=== PATIENT | male | born 1975 | race Caucasian/White ===

== ENCOUNTER 2017-10-03 08:24 | Inpatient (IN) | payer MEDICAID ==
[~2017-10-03] VITALS: Ht 188 cm; Wt 75.3 kg
[~2017-10-03 08:24] MED LIST: MUPI1OIN4 NS; OLAN7.5T2 PO
[2017-10-03 08:58] LABS: BASOPHILS % (AUTO) 1.4 % (0.0-2.0); EOSINOPHILS % (AUTO) 1.2 % (1.0-6.0); HEMATOCRIT 42.3 % (41-53); HEMOGLOBIN 14.5 g/dL (13.5-17.5); LYMPHOCYTES # (AUTO) 1.8 K/uL (1.0-4.8); LYMPHOCYTES % (AUTO) 31.1 % (22.0-44.0); MEAN CORPUSCULAR HEMOGLOBIN 33.5 pg (26.0-34.0); MEAN CORPUSCULAR HGB CONC 34.2 G/dL (31.0-37.0); MEAN CORPUSCULAR VOLUME 98 fL (80-100); MONOCYTES # (AUTO) 0.4 K/uL (0.1-1.0); MONOCYTES % (AUTO) 7.4 % (2.0-9.0); NEUTROPHILS # (AUTO) 3.5 K/uL (1.8-7.7); NEUTROPHILS % (AUTO) 58.9 % (40.0-70.0); PLATELET COUNT (AUTO) 174 K/uL (150-450); RED BLOOD CELL COUNT(AUTO) 4.33 MIL/uL (4.50-5.90); RED CELL DISTRIBUTION WIDTH 13.2 % (11.5-14.5)
[2017-10-03] MEDS: HALOPERIDOL 5 MG TABLET PO ONE ×2 (09:00→09:03)
[2017-10-03] MEDS ORDERED: LORazepam 2 MG TABLET PO ONE (09:00)
[2017-10-03 09:10] LABS: ANION GAP 8 mmol/L (8-16); CALCIUM, TOTAL 8.7 mg/dL (8.8-10.5); CARBON DIOXIDE 31 mmol/L (22-29); CHLORIDE 103 mmol/L (98-107); CREATININE 0.91 mg/dL (0.60-1.30); GLOMERULAR FILTR. RATE CALC > 60 mL/min (>60); GLUCOSE,RANDOM 72 mg/dL (70-110); POTASSIUM 4.4 mmol/L (3.5-5.1); SODIUM SERUM 142 mmol/L (136-145); UREA NITROGEN, BLOOD 15 mg/dL (7-18)
[2017-10-03 09:15] LABS: ALANINE AMINOTRANSFERASE 43 U/L (12-78); ALBUMIN 3.8 g/dL (3.4-5.0); ALKALINE PHOSPHATASE 58 U/L (46-116); ASPARTATE AMINOTRANSFERASE 69 U/L (15-37); BILIRUBIN,TOTAL 0.2 mg/dL (0.1-1.0); TOTAL PROTEIN, SERUM 7.2 g/dL (6.4-8.2)
[2017-10-03] MEDS ORDERED: HALOPERIDOL 5 MG TABLET PO PRN (09:30)
[2017-10-03 10:46] VITALS: BP 121/80
[2017-10-03] MEDS ORDERED: -PHARMACY VACCINE NOTE- MISC ONE (12:15)
[2017-10-03] MEDS: LORazepam 2 MG TABLET PO PRN (14:15)
[2017-10-03 16:27] VITALS: BP 119/66
[2017-10-03] MEDS: ZOLPIDEM TARTRATE 10 MG TABLET PO PRN (20:26)
[2017-10-03] MEDS: OLANZapine 7.5 MG TABLET PO SCH (20:26)
[2017-10-03] MEDS ORDERED: QUEtiapine FUMARATE 200 MG TABLET PO SCH (21:00)
[2017-10-04 06:29] VITALS: BP 107/65
[2017-10-04 08:04] VITALS: BP 100/62
[2017-10-04 08:39] LABS: CHOL/HDL RATIO 1.8 (4.2-7.3)
[2017-10-04] MEDS ORDERED: ACETAMINOPHEN 325 MG TABLET PO PRN (11:00)
[2017-10-04] MEDS ORDERED: ALBUTEROL SULFATE HFA 90 MCG/PUFF 8 GM INHALER IH PRN (11:00)
[2017-10-04] MEDS ORDERED: MAG HYDROX/AL HYDROX/SIMETH ES 30 ML SUSPENSION UDCUP PO PRN (11:00)
[2017-10-04] MEDS ORDERED: CloNIDine HCL 0.1 MG TABLET PO PRN (11:00)
[2017-10-04] MEDS ORDERED: BACITRACIN 28.4 GM OINTMENT TP PRN (11:00)
[2017-10-04] MEDS ORDERED: MAGNESIUM HYDROXIDE SUSPENSION 30 ML UDCUP PO PRN (11:00)
[2017-10-04] MEDS ORDERED: PETROLATUM,WHITE 71 GM JELLY TP PRN (11:00)
[2017-10-04] MEDS ORDERED: ONDANSETRON HCL 4 MG TABLET PO PRN (11:00)
[2017-10-04] MEDS ORDERED: BENZOCAINE/MENTHOL LOZENGE MM PRN (11:00)
[2017-10-04] MEDS ORDERED: IBUPROFEN 600 MG TABLET PO PRN (11:00)
[2017-10-04] MEDS ORDERED: LOPERAMIDE HCL 2 MG CAPSULE PO PRN (11:00)
[2017-10-04] MEDS: LORazepam 2 MG TABLET PO PRN ×2 (11:50→20:16)
[2017-10-04] MEDS: TraMADol HCL 50 MG TABLET PO PRN ×2 (11:50→20:16)
[2017-10-04 16:14] VITALS: BP 110/66
[2017-10-04] MEDS: OLANZapine 7.5 MG TABLET PO SCH (20:16)
[2017-10-05 06:25] VITALS: BP 104/65
[2017-10-05 08:16] VITALS: BP 100/66
[2017-10-05] MEDS: NICOTINE 21 MG/24 HOUR PATCH TD SCH (08:33)
[2017-10-05] MEDS: MULTIVITAMINS WITH MINERALS, THERAPEUTIC TABLET PO SCH (08:33)
[2017-10-05] MEDS: LORazepam 2 MG TABLET PO PRN ×3 (08:33→20:22)
[2017-10-05] MEDS: TraMADol HCL 50 MG TABLET PO PRN ×2 (11:43→19:15)
[2017-10-05 16:03] VITALS: BP 105/73
[2017-10-05] MEDS: OLANZapine 7.5 MG TABLET PO SCH (20:22)
[2017-10-05] MEDS: ZOLPIDEM TARTRATE 10 MG TABLET PO PRN (20:22)
[2017-10-06 06:17] VITALS: BP 101/72
[2017-10-06 08:06] VITALS: BP 110/71
[2017-10-06] MEDS: LORazepam 2 MG TABLET PO PRN ×3 (08:46→20:10)
[2017-10-06] MEDS: MULTIVITAMINS WITH MINERALS, THERAPEUTIC TABLET PO SCH (08:46)
[2017-10-06] MEDS: NICOTINE 21 MG/24 HOUR PATCH TD SCH (08:47)
[2017-10-06] MEDS: TraMADol HCL 50 MG TABLET PO PRN ×2 (10:21→20:11)
[2017-10-06 16:22] VITALS: BP 126/65
[2017-10-06] MEDS: ZOLPIDEM TARTRATE 10 MG TABLET PO PRN (20:10)
[2017-10-06] MEDS: OLANZapine 7.5 MG TABLET PO SCH (20:10)
[2017-10-07 06:31] VITALS: BP 119/72
[2017-10-07] MEDS: MULTIVITAMINS WITH MINERALS, THERAPEUTIC TABLET PO SCH (08:09)
[2017-10-07] MEDS: NICOTINE 21 MG/24 HOUR PATCH TD SCH (08:09)
[2017-10-07 08:13] VITALS: BP 111/65
[2017-10-07] MEDS: LORazepam 2 MG TABLET PO PRN ×3 (10:20→22:06)
[2017-10-07] MEDS: TraMADol HCL 50 MG TABLET PO PRN ×2 (10:21→16:37)
[2017-10-07 16:35] VITALS: BP 116/70
[2017-10-07] MEDS: ZOLPIDEM TARTRATE 10 MG TABLET PO PRN (20:18)
[2017-10-07] MEDS: OLANZapine 7.5 MG TABLET PO SCH (21:08)
[2017-10-08 06:45] VITALS: BP 125/78
[2017-10-08] MEDS: TraMADol HCL 50 MG TABLET PO PRN ×3 (07:08→13:12)
[2017-10-08] MEDS: LORazepam 2 MG TABLET PO PRN (07:08)
[2017-10-08] MEDS: NICOTINE 21 MG/24 HOUR PATCH TD SCH (08:10)
[2017-10-08] MEDS: MULTIVITAMINS WITH MINERALS, THERAPEUTIC TABLET PO SCH (08:10)
[2017-10-08 08:12] VITALS: BP 106/67
[2017-10-09] MEDS ORDERED: ZOLP10TA7 PO (12:19)
[2017-10-09] MEDS ORDERED: LORA2TAB2 PO (12:19)
[2017-10-09] MEDS ORDERED: TRAM50TA4 PO (12:19)
== END 2017-10-08 13:00 | disposition home or self-care (01) | DRG 750 ==
LOC: EMS 08:24 → B3A 09:43
PROVIDERS: ADMIT Psychiatry & Neurology Psychiatry; ATTEND Psychiatry & Neurology Psychiatry
DX: F20.0 Paranoid schizophrenia (principal); R45.851 Suicidal ideations; Z91.19 Patient's noncompliance with other medical treatment and regimen; G47.00 Insomnia, unspecified; M54.5 Low back pain; F17.200 Nicotine dependence, unspecified, uncomplicated; F15.90 Other stimulant use, unspecified, uncomplicated; F10.10 Alcohol abuse, uncomplicated; Z59.0 Homelessness; Z79.899 Other long term (current) drug therapy; Z71.6 Tobacco abuse counseling
CPT/HCPCS: 83036; 87081; 99285; G0480

== ENCOUNTER 2017-10-09 12:07 | Inpatient (IN) | payer MEDICAID ==
[~2017-10-09] VITALS: Ht 188 cm; Wt 80.7 kg
[~2017-10-09 12:07] MED LIST changes: -MUPI1OIN4 NS
[2017-10-09] MEDS ORDERED: ZOLP10TA7 PO (12:19)
[2017-10-09] MEDS ORDERED: LORA2TAB2 PO (12:19)
[2017-10-09] MEDS ORDERED: TRAM50TA4 PO (12:19)
[2017-10-09 16:11] LABS: BASOPHILS % (AUTO) 0.8 % (0.0-2.0); EOSINOPHILS % (AUTO) 0.2 % (1.0-6.0); HEMATOCRIT 41.7 % (41-53); HEMOGLOBIN 14.4 g/dL (13.5-17.5); LYMPHOCYTES # (AUTO) 1.6 K/uL (1.0-4.8); LYMPHOCYTES % (AUTO) 15.9 % (22.0-44.0); MEAN CORPUSCULAR HEMOGLOBIN 33.7 pg (26.0-34.0); MEAN CORPUSCULAR HGB CONC 34.6 G/dL (31.0-37.0); MEAN CORPUSCULAR VOLUME 98 fL (80-100); MONOCYTES # (AUTO) 1.1 K/uL (0.1-1.0); MONOCYTES % (AUTO) 11.4 % (2.0-9.0); NEUTROPHILS # (AUTO) 7.2 K/uL (1.8-7.7); NEUTROPHILS % (AUTO) 71.7 % (40.0-70.0); PLATELET COUNT (AUTO) 187 K/uL (150-450); RED BLOOD CELL COUNT(AUTO) 4.27 MIL/uL (4.50-5.90); RED CELL DISTRIBUTION WIDTH 13.5 % (11.5-14.5)
[2017-10-09 16:20] LABS: ANION GAP 6 mmol/L (8-16); CALCIUM, TOTAL 9.7 mg/dL (8.8-10.5); CARBON DIOXIDE 30 mmol/L (22-29); CHLORIDE 102 mmol/L (98-107); CREATININE 0.92 mg/dL (0.60-1.30); GLOMERULAR FILTR. RATE CALC > 60 mL/min (>60); GLUCOSE,RANDOM 118 mg/dL (70-110); POTASSIUM 4.4 mmol/L (3.5-5.1); SODIUM SERUM 138 mmol/L (136-145); UREA NITROGEN, BLOOD 18 mg/dL (7-18)
[2017-10-09 16:28] LABS: ALANINE AMINOTRANSFERASE 40 U/L (12-78); ALKALINE PHOSPHATASE 79 U/L (46-116); ASPARTATE AMINOTRANSFERASE 42 U/L (15-37); BILIRUBIN,TOTAL 0.4 mg/dL (0.1-1.0); TOTAL PROTEIN, SERUM 7.8 g/dL (6.4-8.2)
[2017-10-09] MEDS ORDERED: HALOPERIDOL 5 MG TABLET PO PRN (19:00)
[2017-10-09 19:14] LABS: AMPHET/METH SCREEN,URINE POSITIVE (NEGATIVE); BARBITURATE SCREEN, URINE NEGATIVE (NEGATIVE); BENZODIAZEPINES SCREEN,URINE NEGATIVE (NEGATIVE); CANNABINOID SCREEN,URINE POSITIVE (NEGATIVE); COCAINE SCREEN,URINE NEGATIVE (NEGATIVE); METHADONE SCREEN, URINE NEGATIVE (NEGATIVE); OPIATE SCREEN,URINE NEGATIVE (NEGATIVE); PHENCYCLIDINE SCREEN,URINE NEGATIVE (NEGATIVE)
[2017-10-09] MEDS: LORazepam 2 MG TABLET PO PRN (19:32)
[2017-10-09] MEDS ORDERED: PETROLATUM,WHITE 71 GM JELLY TP PRN (21:00)
[2017-10-09] MEDS ORDERED: MAG HYDROX/AL HYDROX/SIMETH ES 30 ML SUSPENSION UDCUP PO PRN (21:00)
[2017-10-09] MEDS ORDERED: CloNIDine HCL 0.1 MG TABLET PO PRN (21:00)
[2017-10-09] MEDS ORDERED: ACETAMINOPHEN 325 MG TABLET PO PRN (21:00)
[2017-10-09] MEDS ORDERED: BACITRACIN 28.4 GM OINTMENT TP PRN (21:00)
[2017-10-09] MEDS ORDERED: MAGNESIUM HYDROXIDE SUSPENSION 30 ML UDCUP PO PRN (21:00)
[2017-10-09] MEDS ORDERED: ALBUTEROL SULFATE HFA 90 MCG/PUFF 8 GM INHALER IH PRN (21:00)
[2017-10-09] MEDS ORDERED: ONDANSETRON HCL 4 MG TABLET PO PRN (21:00)
[2017-10-09] MEDS ORDERED: BENZOCAINE/MENTHOL LOZENGE MM PRN (21:15)
[2017-10-09 21:22] VITALS: BP 149/94
[2017-10-09] MEDS: OLANZapine 7.5 MG TABLET PO SCH (22:14)
[2017-10-09] MEDS: ZOLPIDEM TARTRATE 10 MG TABLET PO PRN (22:17)
[2017-10-10 05:30] VITALS: BP 116/66
[2017-10-10] MEDS: LORazepam 2 MG TABLET PO PRN ×3 (05:39→18:35)
[2017-10-10 10:00] VITALS: BP 103/52
[2017-10-10] MEDS: DOCUSATE SODIUM 100 MG CAPSULE PO SCH (11:10)
[2017-10-10] MEDS: OMEPRAZOLE 20 MG CAPSULE PO SCH (11:10)
[2017-10-10] MEDS: NICOTINE 21 MG/24 HOUR PATCH TD SCH (11:15)
[2017-10-10] MEDS: IBUPROFEN 600 MG TABLET PO PRN (11:23)
[2017-10-10] MEDS: TraMADol HCL 50 MG TABLET PO PRN ×2 (13:11→21:28)
[2017-10-10] MEDS: ZOLPIDEM TARTRATE 10 MG TABLET PO PRN (20:32)
[2017-10-10] MEDS: OLANZapine 7.5 MG TABLET PO SCH (20:32)
[2017-10-10 21:27] VITALS: BP 124/78
[2017-10-10 22:27] VITALS: BP 118/70
[2017-10-11] MEDS: DOCUSATE SODIUM 100 MG CAPSULE PO SCH (08:42)
[2017-10-11] MEDS: NICOTINE 21 MG/24 HOUR PATCH TD SCH (08:42)
[2017-10-11] MEDS: OMEPRAZOLE 20 MG CAPSULE PO SCH (08:42)
[2017-10-11] MEDS: LORazepam 2 MG TABLET PO PRN ×3 (08:43→20:23)
[2017-10-11] MEDS: TraMADol HCL 50 MG TABLET PO PRN ×2 (08:43→17:06)
[2017-10-11 09:29] VITALS: BP 98/68
[2017-10-11 17:05] VITALS: BP 110/69
[2017-10-11 18:05] VITALS: BP 112/69
[2017-10-11] MEDS: ZOLPIDEM TARTRATE 10 MG TABLET PO PRN (20:23)
[2017-10-11] MEDS: OLANZapine 7.5 MG TABLET PO SCH (20:23)
[2017-10-12] MEDS: LORazepam 2 MG TABLET PO PRN ×3 (01:10→15:49)
[2017-10-12 01:25] VITALS: BP 117/74
[2017-10-12] MEDS: OMEPRAZOLE 20 MG CAPSULE PO SCH (08:38)
[2017-10-12] MEDS: DOCUSATE SODIUM 100 MG CAPSULE PO SCH (08:38)
[2017-10-12] MEDS: NICOTINE 21 MG/24 HOUR PATCH TD SCH (08:40)
[2017-10-12 08:55] VITALS: BP 121/68
[2017-10-12] MEDS: TraMADol HCL 50 MG TABLET PO PRN ×2 (09:46→18:02)
[2017-10-12] MEDS: LOPERAMIDE HCL 2 MG CAPSULE PO PRN (16:23)
[2017-10-12 17:56] VITALS: BP 132/65
[2017-10-12] MEDS: OLANZapine 7.5 MG TABLET PO SCH (20:42)
[2017-10-12] MEDS: MIRTAZAPINE 15 MG TABLET PO SCH (20:42)
[2017-10-13] MEDS: LORazepam 2 MG TABLET PO PRN ×3 (08:02→19:35)
[2017-10-13] MEDS: TraMADol HCL 50 MG TABLET PO PRN ×2 (08:02→16:34)
[2017-10-13] MEDS: LOPERAMIDE HCL 2 MG CAPSULE PO PRN ×3 (08:03→16:35)
[2017-10-13] MEDS: OMEPRAZOLE 20 MG CAPSULE PO SCH (08:03)
[2017-10-13] MEDS: DOCUSATE SODIUM 100 MG CAPSULE PO SCH (08:04)
[2017-10-13] MEDS: NICOTINE 21 MG/24 HOUR PATCH TD SCH (08:04)
[2017-10-13 09:40] VITALS: BP 106/68
[2017-10-13 16:25] VITALS: BP 115/71
[2017-10-13] MEDS: OLANZapine 7.5 MG TABLET PO SCH (20:07)
[2017-10-13] MEDS: MIRTAZAPINE 15 MG TABLET PO SCH (20:07)
[2017-10-13 21:18] VITALS: BP 110/70
[2017-10-14] MEDS: DOCUSATE SODIUM 100 MG CAPSULE PO SCH (08:03)
[2017-10-14] MEDS: OMEPRAZOLE 20 MG CAPSULE PO SCH (08:03)
[2017-10-14] MEDS: LORazepam 2 MG TABLET PO PRN ×4 (08:04→21:25)
[2017-10-14] MEDS: TraMADol HCL 50 MG TABLET PO PRN ×2 (08:04→16:14)
[2017-10-14 08:05] VITALS: BP 113/73
[2017-10-14] MEDS: NICOTINE 21 MG/24 HOUR PATCH TD SCH (08:38)
[2017-10-14 10:18] VITALS: BP 113/73
[2017-10-14 16:12] VITALS: BP 136/87
[2017-10-14 17:12] VITALS: BP 126/80
[2017-10-14] MEDS: MIRTAZAPINE 15 MG TABLET PO SCH (20:12)
[2017-10-14] MEDS: OLANZapine 7.5 MG TABLET PO SCH (20:13)
[2017-10-14] MEDS: ZOLPIDEM TARTRATE 10 MG TABLET PO PRN (21:25)
[2017-10-15] MEDS: NICOTINE 21 MG/24 HOUR PATCH TD SCH (08:59)
[2017-10-15] MEDS: OMEPRAZOLE 20 MG CAPSULE PO SCH (08:59)
[2017-10-15] MEDS: DOCUSATE SODIUM 100 MG CAPSULE PO SCH (08:59)
[2017-10-15 09:01] VITALS: BP 107/60
[2017-10-15] MEDS: LORazepam 2 MG TABLET PO PRN ×3 (09:01→20:35)
[2017-10-15] MEDS: TraMADol HCL 50 MG TABLET PO PRN ×2 (09:01→18:01)
[2017-10-15 10:01] VITALS: BP 114/66
[2017-10-15 17:58] VITALS: BP 127/76
[2017-10-15 18:58] VITALS: BP 116/71
[2017-10-15] MEDS: OLANZapine 7.5 MG TABLET PO SCH (20:13)
[2017-10-15] MEDS: MIRTAZAPINE 15 MG TABLET PO SCH (20:15)
[2017-10-15] MEDS: ZOLPIDEM TARTRATE 10 MG TABLET PO PRN (20:35)
[2017-10-16 06:50] VITALS: BP 115/65
[2017-10-16] MEDS: TraMADol HCL 50 MG TABLET PO PRN ×2 (06:54→16:04)
[2017-10-16] MEDS: LORazepam 2 MG TABLET PO PRN ×4 (06:54→21:15)
[2017-10-16] MEDS: NICOTINE 21 MG/24 HOUR PATCH TD SCH (09:00)
[2017-10-16 09:41] VITALS: BP 127/86
[2017-10-16] MEDS: DOCUSATE SODIUM 100 MG CAPSULE PO SCH (10:39)
[2017-10-16] MEDS: OMEPRAZOLE 20 MG CAPSULE PO SCH (10:39)
[2017-10-16 16:03] VITALS: BP 120/66
[2017-10-16 18:54] VITALS: BP 130/78
[2017-10-16] MEDS: MIRTAZAPINE 15 MG TABLET PO SCH (20:12)
[2017-10-16] MEDS: OLANZapine 7.5 MG TABLET PO SCH (20:12)
[2017-10-16] MEDS: ZOLPIDEM TARTRATE 10 MG TABLET PO PRN (21:15)
[2017-10-17 07:25] VITALS: BP 107/80
[2017-10-17] MEDS: TraMADol HCL 50 MG TABLET PO PRN ×2 (07:29→19:08)
[2017-10-17] MEDS: LORazepam 2 MG TABLET PO PRN ×3 (08:17→17:42)
[2017-10-17] MEDS: OMEPRAZOLE 20 MG CAPSULE PO SCH (08:17)
[2017-10-17] MEDS: DOCUSATE SODIUM 100 MG CAPSULE PO SCH (08:17)
[2017-10-17] MEDS: NICOTINE 21 MG/24 HOUR PATCH TD SCH (09:00)
[2017-10-17 10:29] VITALS: BP 107/80
[2017-10-17] MEDS ORDERED: BENZOCAINE 10% 7 GM GEL TP PRN (17:45)
[2017-10-17 19:05] VITALS: BP 121/65
[2017-10-17] MEDS: MIRTAZAPINE 15 MG TABLET PO SCH (20:51)
[2017-10-17] MEDS: OLANZapine 7.5 MG TABLET PO SCH (20:51)
[2017-10-18] MEDS: LORazepam 2 MG TABLET PO PRN ×4 (05:29→19:10)
[2017-10-18 05:30] VITALS: BP 123/72
[2017-10-18] MEDS: TraMADol HCL 50 MG TABLET PO PRN ×2 (05:30→13:48)
[2017-10-18 08:00] VITALS: BP 102/70
[2017-10-18] MEDS: NICOTINE 21 MG/24 HOUR PATCH TD SCH (09:00)
[2017-10-18] MEDS: DOCUSATE SODIUM 100 MG CAPSULE PO SCH (09:12)
[2017-10-18] MEDS: MAGNESIUM SULFATE 454 GM BOX PO SCH ×3 (09:12→16:18)
[2017-10-18] MEDS: OMEPRAZOLE 20 MG CAPSULE PO SCH (09:12)
[2017-10-18 18:51] VITALS: BP 126/73
[2017-10-18] MEDS: OLANZapine 7.5 MG TABLET PO SCH (20:17)
[2017-10-18] MEDS: MIRTAZAPINE 15 MG TABLET PO SCH (20:17)
[2017-10-18] MEDS: ZOLPIDEM TARTRATE 10 MG TABLET PO PRN (20:42)
[2017-10-19 06:05] VITALS: BP 102/86
[2017-10-19] MEDS: TraMADol HCL 50 MG TABLET PO PRN ×2 (06:13→14:59)
[2017-10-19] MEDS: LORazepam 2 MG TABLET PO PRN ×4 (06:16→20:57)
[2017-10-19] MEDS: OMEPRAZOLE 20 MG CAPSULE PO SCH (09:51)
[2017-10-19] MEDS: DOCUSATE SODIUM 100 MG CAPSULE PO SCH (09:51)
[2017-10-19] MEDS: NICOTINE 21 MG/24 HOUR PATCH TD SCH (09:53)
[2017-10-19] MEDS: MAGNESIUM SULFATE 454 GM BOX PO SCH ×3 (10:17→17:17)
[2017-10-19 10:31] VITALS: BP 137/84
[2017-10-19] MEDS: IBUPROFEN 600 MG TABLET PO PRN (10:31)
[2017-10-19 15:59] VITALS: BP 127/77
[2017-10-19 17:16] VITALS: BP 113/80
[2017-10-19] MEDS: OLANZapine 7.5 MG TABLET PO SCH (20:03)
[2017-10-19] MEDS: ZOLPIDEM TARTRATE 10 MG TABLET PO PRN (20:57)
[2017-10-19] MEDS: MIRTAZAPINE 15 MG TABLET PO SCH (21:00)
[2017-10-20] MEDS: LORazepam 2 MG TABLET PO PRN ×4 (07:07→20:12)
[2017-10-20] MEDS: TraMADol HCL 50 MG TABLET PO PRN ×2 (07:07→15:06)
[2017-10-20 07:08] VITALS: BP 122/73
[2017-10-20 08:07] VITALS: BP 105/62
[2017-10-20] MEDS: NICOTINE 21 MG/24 HOUR PATCH TD SCH (09:00)
[2017-10-20] MEDS: OMEPRAZOLE 20 MG CAPSULE PO SCH (09:06)
[2017-10-20] MEDS: DOCUSATE SODIUM 100 MG CAPSULE PO SCH (09:06)
[2017-10-20] MEDS: MAGNESIUM SULFATE 454 GM BOX PO SCH ×3 (09:09→17:16)
[2017-10-20 16:00] VITALS: BP 128/74
[2017-10-20] MEDS: ZOLPIDEM TARTRATE 10 MG TABLET PO PRN (20:12)
[2017-10-20] MEDS: OLANZapine 7.5 MG TABLET PO SCH (20:14)
[2017-10-20] MEDS: MIRTAZAPINE 15 MG TABLET PO SCH (21:00)
[2017-10-21 05:55] VITALS: BP 116/76
[2017-10-21] MEDS: TraMADol HCL 50 MG TABLET PO PRN ×2 (05:58→14:10)
[2017-10-21] MEDS: LORazepam 2 MG TABLET PO PRN ×4 (05:58→21:02)
[2017-10-21 08:00] VITALS: BP 137/54
[2017-10-21] MEDS: OMEPRAZOLE 20 MG CAPSULE PO SCH (09:06)
[2017-10-21] MEDS: NICOTINE 21 MG/24 HOUR PATCH TD SCH (09:06)
[2017-10-21] MEDS: DOCUSATE SODIUM 100 MG CAPSULE PO SCH (09:06)
[2017-10-21] MEDS: MAGNESIUM SULFATE 454 GM BOX PO SCH ×3 (09:06→17:00)
[2017-10-21 14:10] VITALS: BP 124/84
[2017-10-21 20:08] VITALS: BP 130/78
[2017-10-21] MEDS: MIRTAZAPINE 15 MG TABLET PO SCH (21:00)
[2017-10-21] MEDS: ZOLPIDEM TARTRATE 10 MG TABLET PO PRN (21:02)
[2017-10-21] MEDS: OLANZapine 7.5 MG TABLET PO SCH (21:02)
[2017-10-22 06:25] VITALS: BP 119/88
[2017-10-22] MEDS: LORazepam 2 MG TABLET PO PRN ×4 (06:30→20:05)
[2017-10-22] MEDS: TraMADol HCL 50 MG TABLET PO PRN ×2 (06:30→21:33)
[2017-10-22] MEDS: MAGNESIUM SULFATE 454 GM BOX PO SCH ×3 (09:00→16:06)
[2017-10-22] MEDS: NICOTINE 21 MG/24 HOUR PATCH TD SCH (09:00)
[2017-10-22] MEDS: OMEPRAZOLE 20 MG CAPSULE PO SCH (09:21)
[2017-10-22] MEDS: DOCUSATE SODIUM 100 MG CAPSULE PO SCH (09:21)
[2017-10-22 10:03] VITALS: BP 107/67
[2017-10-22 14:39] VITALS: BP 138/93
[2017-10-22 17:02] VITALS: BP 117/66
[2017-10-22] MEDS: MIRTAZAPINE 15 MG TABLET PO SCH (20:04)
[2017-10-22] MEDS: OLANZapine 7.5 MG TABLET PO SCH (20:04)
[2017-10-22 21:34] VITALS: BP 122/69
[2017-10-22] MEDS: ZOLPIDEM TARTRATE 10 MG TABLET PO PRN (22:12)
[2017-10-23] MEDS: TraMADol HCL 50 MG TABLET PO PRN (06:21)
[2017-10-23 06:22] VITALS: BP 120/80
[2017-10-23] MEDS: DOCUSATE SODIUM 100 MG CAPSULE PO SCH (08:50)
[2017-10-23] MEDS: OMEPRAZOLE 20 MG CAPSULE PO SCH (08:50)
[2017-10-23 09:00] VITALS: BP 135/74
[2017-10-23] MEDS: NICOTINE 21 MG/24 HOUR PATCH TD SCH (09:00)
[2017-10-23] MEDS: MAGNESIUM SULFATE 454 GM BOX PO SCH ×2 (09:27→12:44)
[2017-10-23] MEDS ORDERED: MIRT15 PO (10:46)
[2017-10-23] MEDS ORDERED: DSS100 PO (10:49)
[2017-10-23] MEDS ORDERED: OMEP20 PO (10:50)
[2017-10-23] MEDS ORDERED: EPSOT PO (10:50)
[2017-10-23] MEDS: LORazepam 2 MG TABLET PO PRN (11:57)
== END 2017-10-23 14:44 | disposition home or self-care (01) | DRG 750 ==
LOC: EMS 12:09 → 3EI 20:00
PROVIDERS: ADMIT Psychiatry & Neurology Psychiatry; ATTEND Psychiatry & Neurology Psychiatry
DX: F20.0 Paranoid schizophrenia (principal); R45.851 Suicidal ideations; Z91.19 Patient's noncompliance with other medical treatment and regimen; G47.00 Insomnia, unspecified; K08.89 Other specified disorders of teeth and supporting structures; M54.5 Low back pain; F17.210 Nicotine dependence, cigarettes, uncomplicated; F15.90 Other stimulant use, unspecified, uncomplicated; Z59.0 Homelessness; Z79.899 Other long term (current) drug therapy; Z71.6 Tobacco abuse counseling; Z71.41 Alcohol abuse counseling and surveillance of alcoholic
CPT/HCPCS: 87081; 99285; G0480

== ENCOUNTER 2017-10-29 18:25 | Inpatient (IN) | payer MEDICAID ==
[~2017-10-29] VITALS: Ht 188 cm; Wt 83.5 kg
[~2017-10-29 18:25] MED LIST changes: +DSS100 PO; +EPSOT PO; +MIRT15 PO; +OMEP20 PO
[2017-10-29] MEDS ORDERED: LORA2TAB2 PO (19:05)
[2017-10-29] MEDS ORDERED: OLAN7.5T2 PO (19:05)
[2017-10-29] MEDS ORDERED: TEMA15CA PO (19:05)
[2017-10-29 20:16] LABS: BASOPHILS % (AUTO) 1.4 % (0.0-2.0); EOSINOPHILS % (AUTO) 5.3 % (1.0-6.0); HEMATOCRIT 42.3 % (41-53); HEMOGLOBIN 14.6 g/dL (13.5-17.5); LYMPHOCYTES # (AUTO) 2.6 K/uL (1.0-4.8); LYMPHOCYTES % (AUTO) 39.1 % (22.0-44.0); MEAN CORPUSCULAR HEMOGLOBIN 33.3 pg (26.0-34.0); MEAN CORPUSCULAR HGB CONC 34.6 G/dL (31.0-37.0); MEAN CORPUSCULAR VOLUME 96 fL (80-100); MONOCYTES # (AUTO) 0.7 K/uL (0.1-1.0); MONOCYTES % (AUTO) 10.2 % (2.0-9.0); NEUTROPHILS # (AUTO) 2.9 K/uL (1.8-7.7); PLATELET COUNT (AUTO) 224 K/uL (150-450); RED BLOOD CELL COUNT(AUTO) 4.39 MIL/uL (4.50-5.90); RED CELL DISTRIBUTION WIDTH 13.5 % (11.5-14.5)
[2017-10-29 21:14] LABS: ALANINE AMINOTRANSFERASE 27 U/L (12-78); ALKALINE PHOSPHATASE 70 U/L (46-116); ANION GAP 8 mmol/L (8-16); ASPARTATE AMINOTRANSFERASE 14 U/L (15-37); BILIRUBIN,TOTAL 0.2 mg/dL (0.1-1.0); CALCIUM, TOTAL 8.8 mg/dL (8.8-10.5); CARBON DIOXIDE 29 mmol/L (22-29); CHLORIDE 105 mmol/L (98-107); CREATININE 0.91 mg/dL (0.60-1.30); GLOMERULAR FILTR. RATE CALC > 60 mL/min (>60); GLUCOSE,RANDOM 94 mg/dL (70-110); POTASSIUM 4.7 mmol/L (3.5-5.1); SODIUM SERUM 142 mmol/L (136-145); TOTAL PROTEIN, SERUM 7.5 g/dL (6.4-8.2); UREA NITROGEN, BLOOD 13 mg/dL (7-18)
[2017-10-29 21:58] LABS: AMPHET/METH SCREEN,URINE NEGATIVE (NEGATIVE); BARBITURATE SCREEN, URINE NEGATIVE (NEGATIVE); BENZODIAZEPINES SCREEN,URINE NEGATIVE (NEGATIVE); CANNABINOID SCREEN,URINE NEGATIVE (NEGATIVE); COCAINE SCREEN,URINE NEGATIVE (NEGATIVE); METHADONE SCREEN, URINE NEGATIVE (NEGATIVE); OPIATE SCREEN,URINE NEGATIVE (NEGATIVE); PHENCYCLIDINE SCREEN,URINE NEGATIVE (NEGATIVE)
[2017-10-29] MEDS ORDERED: DiphenhydrAMINE HCL 25 MG CAPSULE PO ONE (22:30)
[2017-10-29] MEDS ORDERED: ZOLPIDEM TARTRATE 10 MG TABLET PO PRN (22:30)
[2017-10-29] MEDS ORDERED: LORazepam 2 MG TABLET PO ONE (22:30)
[2017-10-29] MEDS ORDERED: HALOPERIDOL 5 MG TABLET PO ONE (22:30)
[2017-10-29] MEDS ORDERED: HALOPERIDOL 5 MG TABLET PO PRN (22:30)
[2017-10-30 01:17] VITALS: BP 134/69
[2017-10-30] MEDS ORDERED: LOPERAMIDE HCL 2 MG CAPSULE PO PRN (10:15)
[2017-10-30] MEDS ORDERED: IBUPROFEN 600 MG TABLET PO PRN (10:15)
[2017-10-30] MEDS ORDERED: ONDANSETRON HCL 4 MG TABLET PO PRN (10:15)
[2017-10-30] MEDS ORDERED: BACITRACIN 28.4 GM OINTMENT TP PRN (10:15)
[2017-10-30] MEDS ORDERED: ACETAMINOPHEN 325 MG TABLET PO PRN (10:15)
[2017-10-30] MEDS ORDERED: BENZOCAINE/MENTHOL LOZENGE MM PRN (10:15)
[2017-10-30] MEDS ORDERED: MAG HYDROX/AL HYDROX/SIMETH ES 30 ML SUSPENSION UDCUP PO PRN (10:15)
[2017-10-30] MEDS ORDERED: CloNIDine HCL 0.1 MG TABLET PO PRN (10:15)
[2017-10-30] MEDS ORDERED: PETROLATUM,WHITE 71 GM JELLY TP PRN (10:15)
[2017-10-30] MEDS ORDERED: ALBUTEROL SULFATE HFA 90 MCG/PUFF 8 GM INHALER IH PRN (10:15)
[2017-10-30] MEDS ORDERED: MAGNESIUM HYDROXIDE SUSPENSION 30 ML UDCUP PO PRN (10:15)
[2017-10-30 10:21] VITALS: BP 127/88
[2017-10-30] MEDS: LORazepam 2 MG TABLET PO PRN ×2 (14:09→19:33)
[2017-10-30 17:28] VITALS: BP 124/78
[2017-10-30] MEDS: OLANZapine 7.5 MG TABLET PO SCH (20:36)
[2017-10-30] MEDS: MIRTAZAPINE 15 MG TABLET PO SCH (20:41)
[2017-10-31] MEDS: LORazepam 2 MG TABLET PO PRN ×3 (06:42→16:51)
[2017-10-31 09:47] VITALS: BP 110/66
[2017-10-31 18:45] VITALS: BP 111/56
[2017-10-31] MEDS: OLANZapine 7.5 MG TABLET PO SCH (20:10)
[2017-10-31] MEDS: MIRTAZAPINE 15 MG TABLET PO SCH (20:10)
[2017-11-01] MEDS: LORazepam 2 MG TABLET PO PRN ×4 (05:35→19:23)
[2017-11-01 08:31] VITALS: BP 117/78
[2017-11-01] MEDS ORDERED: SERTRALINE HCL 50 MG TABLET PO SCH (09:00)
[2017-11-01 17:18] VITALS: BP 126/75
[2017-11-01] MEDS: OLANZapine 7.5 MG TABLET PO SCH (20:04)
[2017-11-02] MEDS: LORazepam 2 MG TABLET PO PRN ×4 (06:29→20:11)
[2017-11-02] MEDS: SERTRALINE HCL 100 MG TABLET PO SCH (08:27)
[2017-11-02 09:35] VITALS: BP 134/83
[2017-11-02] MEDS: TraMADol HCL 50 MG TABLET PO PRN (09:35)
[2017-11-02 09:52] VITALS: BP 134/83
[2017-11-02 19:31] VITALS: BP 119/77
[2017-11-02] MEDS: OLANZapine 7.5 MG TABLET PO SCH (20:11)
[2017-11-03 06:10] VITALS: BP 124/85
[2017-11-03] MEDS: TraMADol HCL 50 MG TABLET PO PRN ×2 (06:15→14:49)
[2017-11-03] MEDS: LORazepam 2 MG TABLET PO PRN ×4 (06:32→21:06)
[2017-11-03] MEDS: SERTRALINE HCL 100 MG TABLET PO SCH (09:04)
[2017-11-03 09:25] VITALS: BP 115/72
[2017-11-03 15:48] VITALS: BP 118/78
[2017-11-03] MEDS: OLANZapine 7.5 MG TABLET PO SCH (20:06)
[2017-11-03 21:35] VITALS: BP 108/72
[2017-11-04 05:45] VITALS: BP 116/73
[2017-11-04] MEDS: TraMADol HCL 50 MG TABLET PO PRN (05:57)
[2017-11-04] MEDS: LORazepam 2 MG TABLET PO PRN ×2 (05:57→10:47)
[2017-11-04] MEDS: SERTRALINE HCL 100 MG TABLET PO SCH (08:15)
[2017-11-04 09:40] VITALS: BP 129/77
[2017-11-04] MEDS ORDERED: SERT100T12 PO (12:30)
== END 2017-11-04 14:14 | disposition home or self-care (01) | DRG 750 ==
LOC: EMS 18:30 → 3EI 22:46
PROVIDERS: ADMIT Psychiatry & Neurology Psychiatry; ATTEND Psychiatry & Neurology Psychiatry
DX: F20.0 Paranoid schizophrenia (principal); R45.851 Suicidal ideations; Z59.0 Homelessness; M54.5 Low back pain; R45.4 Irritability and anger; R45.87 Impulsiveness; F41.9 Anxiety disorder, unspecified; G47.00 Insomnia, unspecified; F10.10 Alcohol abuse, uncomplicated; F12.90 Cannabis use, unspecified, uncomplicated; F15.90 Other stimulant use, unspecified, uncomplicated; F17.210 Nicotine dependence, cigarettes, uncomplicated; Z76.5 Malingerer [conscious simulation]; Z79.899 Other long term (current) drug therapy; Z71.41 Alcohol abuse counseling and surveillance of alcoholic
CPT/HCPCS: 87081; 99285; G0480

== ENCOUNTER 2018-02-28 11:38 | Inpatient (IN) | payer MEDICAID ==
[~2018-02-28] VITALS: Ht 188 cm; Wt 85.7 kg
[~2018-02-28 11:38] MED LIST changes: -DSS100 PO; -EPSOT PO; -MIRT15 PO; -OMEP20 PO; +SERT100T12 PO
[2018-02-28] MEDS ORDERED: TRAM50TA4 PO (11:58)
[2018-02-28 13:05] LABS: AMPHET/METH SCREEN,URINE NEGATIVE (NEGATIVE); BARBITURATE SCREEN, URINE NEGATIVE (NEGATIVE); BENZODIAZEPINES SCREEN,URINE NEGATIVE (NEGATIVE); CANNABINOID SCREEN,URINE POSITIVE (NEGATIVE); COCAINE SCREEN,URINE NEGATIVE (NEGATIVE); METHADONE SCREEN, URINE NEGATIVE (NEGATIVE); OPIATE SCREEN,URINE NEGATIVE (NEGATIVE)
[2018-02-28 13:07] LABS: PHENCYCLIDINE SCREEN,URINE NEGATIVE (NEGATIVE)
[2018-02-28 13:40] LABS: BASOPHILS % (AUTO) 0.9 % (0.0-2.0); HEMATOCRIT 41.1 % (41-53); LYMPHOCYTES # (AUTO) 1.9 K/uL (1.0-4.8); LYMPHOCYTES % (AUTO) 27.4 % (22.0-44.0); MEAN CORPUSCULAR HEMOGLOBIN 32.6 pg (26.0-34.0); MEAN CORPUSCULAR HGB CONC 34.1 G/dL (31.0-37.0); MEAN CORPUSCULAR VOLUME 96 fL (80-100); MONOCYTES # (AUTO) 0.5 K/uL (0.1-1.0); MONOCYTES % (AUTO) 7.6 % (2.0-9.0); NEUTROPHILS # (AUTO) 3.9 K/uL (1.8-7.7); NEUTROPHILS % (AUTO) 57.1 % (40.0-70.0); PLATELET COUNT (AUTO) 185 K/uL (150-450); RED BLOOD CELL COUNT(AUTO) 4.29 MIL/uL (4.50-5.90); RED CELL DISTRIBUTION WIDTH 14.2 % (11.5-14.5)
[2018-02-28 13:51] LABS: ANION GAP 5 mmol/L (8-16); CALCIUM, TOTAL 8.6 mg/dL (8.8-10.5); CARBON DIOXIDE 32 mmol/L (22-29); CHLORIDE 103 mmol/L (98-107); CREATININE 0.87 mg/dL (0.60-1.30); GLOMERULAR FILTR. RATE CALC > 60 mL/min (>60); GLUCOSE,RANDOM 84 mg/dL (70-110); POTASSIUM 4.1 mmol/L (3.5-5.1); SODIUM SERUM 140 mmol/L (136-145); UREA NITROGEN, BLOOD 18 mg/dL (7-18)
[2018-02-28 13:57] LABS: ALANINE AMINOTRANSFERASE 11 U/L (12-78); ALBUMIN 3.1 g/dL (3.4-5.0); ALKALINE PHOSPHATASE 68 U/L (46-116); ASPARTATE AMINOTRANSFERASE 14 U/L (15-37); BILIRUBIN,TOTAL 0.2 mg/dL (0.1-1.0); TOTAL PROTEIN, SERUM 6.5 g/dL (6.4-8.2)
[2018-02-28] MEDS ORDERED: HALOPERIDOL 5 MG TABLET PO PRN (14:30)
[2018-02-28] MEDS ORDERED: ZOLPIDEM TARTRATE 10 MG TABLET PO PRN (14:30)
[2018-02-28 17:19] VITALS: BP 115/79
[2018-02-28] MEDS: LORazepam 2 MG TABLET PO PRN (18:12)
[2018-03-01 06:59] VITALS: BP 118/85
[2018-03-01] MEDS: LORazepam 2 MG TABLET PO PRN ×3 (07:06→17:48)
[2018-03-01 08:16] VITALS: BP 102/59
[2018-03-01] MEDS ORDERED: PETROLATUM,WHITE 71 GM JELLY TP PRN (08:45)
[2018-03-01] MEDS ORDERED: BENZOCAINE/MENTHOL LOZENGE MM PRN (08:45)
[2018-03-01] MEDS ORDERED: ONDANSETRON HCL 4 MG TABLET PO PRN (08:45)
[2018-03-01] MEDS ORDERED: IBUPROFEN 600 MG TABLET PO PRN (08:45)
[2018-03-01] MEDS ORDERED: LOPERAMIDE HCL 2 MG CAPSULE PO PRN (08:45)
[2018-03-01] MEDS ORDERED: ALBUTEROL SULFATE HFA 90 MCG/PUFF 8 GM INHALER IH PRN (08:45)
[2018-03-01] MEDS ORDERED: ACETAMINOPHEN 325 MG TABLET PO PRN (08:45)
[2018-03-01] MEDS ORDERED: BACITRACIN 28.4 GM OINTMENT TP PRN (08:45)
[2018-03-01] MEDS ORDERED: MAG HYDROX/AL HYDROX/SIMETH ES 30 ML SUSPENSION UDCUP PO PRN (08:45)
[2018-03-01] MEDS ORDERED: CloNIDine HCL 0.1 MG TABLET PO PRN (08:45)
[2018-03-01] MEDS ORDERED: MAGNESIUM HYDROXIDE SUSPENSION 30 ML UDCUP PO PRN (08:45)
[2018-03-01 09:13] VITALS: BP 116/72
[2018-03-01] MEDS: TraMADol HCL 50 MG TABLET PO PRN ×2 (09:16→17:31)
[2018-03-01 16:07] VITALS: BP 121/71
[2018-03-01] MEDS: OLANZapine 7.5 MG TABLET PO SCH (20:15)
[2018-03-02 06:36] VITALS: BP 120/81
[2018-03-02 08:15] VITALS: BP 109/67
[2018-03-02] MEDS: TraMADol HCL 50 MG TABLET PO PRN ×2 (08:22→17:26)
[2018-03-02] MEDS: LORazepam 2 MG TABLET PO PRN ×2 (08:22→14:28)
[2018-03-02] MEDS: SERTRALINE HCL 100 MG TABLET PO SCH (08:26)
[2018-03-02 16:24] VITALS: BP 106/60
[2018-03-02] MEDS: OLANZapine 7.5 MG TABLET PO SCH (20:36)
[2018-03-03 06:33] VITALS: BP 110/68
[2018-03-03] MEDS: TraMADol HCL 50 MG TABLET PO PRN (06:52)
[2018-03-03] MEDS: LORazepam 2 MG TABLET PO PRN ×3 (06:52→20:37)
[2018-03-03] MEDS: SERTRALINE HCL 100 MG TABLET PO SCH ×2 (08:33→09:00)
[2018-03-03 09:52] VITALS: BP 112/70
[2018-03-03 16:12] VITALS: BP 112/78
[2018-03-03] MEDS: OLANZapine 7.5 MG TABLET PO SCH (20:37)
[2018-03-04] MEDS: TraMADol HCL 50 MG TABLET PO PRN (06:38)
[2018-03-04] MEDS: LORazepam 2 MG TABLET PO PRN (06:38)
[2018-03-04 08:04] VITALS: BP 117/61
[2018-03-04] MEDS ORDERED: OLAN10TA3 PO (08:42)
== END 2018-03-04 13:20 | disposition home or self-care (01) | DRG 750 ==
LOC: EMS 11:39 → B2S 16:01 → B3A 03-03 17:40
PROVIDERS: ADMIT Psychiatry & Neurology Psychiatry; ATTEND Psychiatry & Neurology Psychiatry
DX: F25.0 Schizoaffective disorder, bipolar type (principal); R45.851 Suicidal ideations; Z59.0 Homelessness; F12.90 Cannabis use, unspecified, uncomplicated; F17.200 Nicotine dependence, unspecified, uncomplicated; G47.00 Insomnia, unspecified; F41.9 Anxiety disorder, unspecified; F15.90 Other stimulant use, unspecified, uncomplicated; M54.5 Low back pain; Z71.41 Alcohol abuse counseling and surveillance of alcoholic; Z71.6 Tobacco abuse counseling; Z71.51 Drug abuse counseling and surveillance of drug abuser; Z72.89 Other problems related to lifestyle; Z56.0 Unemployment, unspecified
CPT/HCPCS: 99285; G0480